=== PATIENT | male | born 1935 | race Two or more races ===

== ENCOUNTER 2016-08-27 09:32 | Emergency (ER) | payer MEDICARE, MEDICAID ==
[~2016-08-27] VITALS: Ht 172.7 cm; Wt 68.0 kg
--- NOTE | 2016-08-27 09:55 | Emergency Room Report ---
History of Present Illness General Chief Complaint: Flu Like Symptoms Source: Patient Present Illness HPI Patient brought in by daughter, 81-year-old gentleman who is generally in good health with three-day history of myalgia, cough, some sweats, body aches. He was seen by her primary DrNoemí yesterday who diagnosed him with the flu. Family states that since leaving he's had more aches, more sweats, worsening cough. He is tolerating by mouth and he is tolerating ambulation with some wooziness according to the daughter. He denies chest pain, denies shortness of breath but does endorse cough. He is not a smoker. Does state that he does feel weak and worn out, but has been trying to drink a lot of water. Allergies: Coded Allergies: ASPIRIN (Verified Allergy, Unknown, 08/27/16) SULFAMETHOXAZOLE (Verified Allergy, Unknown, 08/27/16) TRIMETHOPRIM (Verified Allergy, Unknown, 08/27/16) Patient History Past Medical History: see triage record Past Surgical History: none Pertinent Family History: none Social History: Denies: alcohol use, drug use, smoking Immunizations: UTD Reviewed Nursing Documentation: PMH: Agreed Nursing Documentation-[facility] Past Medical History: No Stated History Review of Systems Constitutional: Reports: fever, weakness Respiratory: Reports: cough, Denies: SOOD Cardiovascular: Denies: chest pain, palpitations Genitourinary: Denies: discharge, dysuria Musculoskeletal: Reports: muscle pain, muscle stiffness All Other Systems: negative except mentioned in HPI Physical Exam Vital Signs Date Time Temp Pulse Resp B/P Pulse Ox O2 Delivery O2 Flow Rate FiO2 08/27/16 09:37 100.8 93 16 155/80 95 Room Air Sp02 EP Interpretation: reviewed, normal General Appearance: well appearing, no apparent distress, alert Head: atraumatic Eyes: bilateral eye normal inspection ENT: normal ENT inspection, hearing grossly normal, normal voice Neck: normal inspection, full range of motion, supple, no bony tend Respiratory: lungs clear, no respiratory distress, no retraction, no wheezing, other - dry cough Cardiovascular #1: regular rate, rhythm, no edema Gastrointestinal: normal inspection, normal bowel sounds, non tender, soft, no guarding, no hernia Genitourinary: no CVA tenderness Musculoskeletal: normal inspection, back normal, normal range of motion Neurologic: normal inspection, alert, responsive, speech normal Psychiatric: normal inspection, judgement/insight normal, mood/affect normal Skin: normal inspection, normal color, no rash Medical Decision Making Diagnostic Impression: Primary Impression: Influenza-like symptoms Additional Impression: Fever ER Course Generally healthy 81-year-old male with flulike symptoms with cough, fever, myalgias for 3 days with possible worsening. Found to be slightly febrile here in the ER but otherwise looks fairly well. We'll do basic blood work to include x-rays EKG chest x-ray, flu swab. And start IV fluid and Tylenol for therapy. Based on initial workup determine his risk and what the next step should be. Patient's lab or generally reassuring, chest x-ray without infiltrate, influenza negative. The patient's daughter disagrees with my diagnosis with a viral syndrome and is made multiple statements that she was DrNoemí the administration because I am not providing antibiotics for the patient. We did give the patient Tylenol and IV fluids and he feels better, he's been walking without difficulty in the ER. I plan to prescribe the patient some doxycycline for possible upper respiratory infection or walking pneumonia and is has not yet developed on the x-ray. Patient followup with primary doctor when necessary Laboratory Tests Test 08/27/16 10:20 White Blood Count 6.6 K/UL (4.8-10.8) Red Blood Count 5.33 M/UL (4.70-6.10) Hemoglobin 17.0 G/DL (14.2-18.0) Hematocrit 51.3 % (42.0-52.0) Mean Corpuscular Volume 96 FL (80-99) Mean Corpuscular Hemoglobin 32.0 PG (27.0-31.0) H Mean Corpuscular Hemoglobin Concent 33.2 G/DL (32.0-36.0) Red Cell Distribution Width 13.2 % (11.6-14.8) Platelet Count 149 K/UL (150-450) L Mean Platelet Volume 9.7 FL (6.5-10.1) Neutrophils (%) (Auto) 75.0 % (45.0-75.0) Lymphocytes (%) (Auto) 9.1 % (20.0-45.0) L Monocytes (%) (Auto) 14.3 % (1.0-10.0) H Eosinophils (%) (Auto) 0.6 % (0.0-3.0) Basophils (%) (Auto) 1.1 % (0.0-2.0) Urine Color Yellow Urine Appearance Clear Urine pH 7 (4.5-8.0) Urine Specific [place] 1.010 (1.005-1.035) Urine Protein 2+ (NEGATIVE) H Urine Glucose (UA) Negative (NEGATIVE) Urine Ketones 2+ (NEGATIVE) H Urine Occult Blood 2+ (NEGATIVE) H Urine Nitrite Negative (NEGATIVE) Urine Bilirubin Negative (NEGATIVE) Urine Urobilinogen Normal MG/DL (0.0-1.0) Urine Leukocyte Esterase Negative (NEGATIVE) Urine RBC 5-10 /HPF (0 - 0) H Urine WBC 0-2 /HPF (0 - 0) Urine Squamous Epithelial Cells Occasional /LPF Urine Bacteria Occasional /HPF (NONE) Sodium Level 136 mEQ/L (135-145) Potassium Level 4.9 mEQ/L (3.4-4.9) Chloride Level 94 mEQ/L (98-107) L Carbon Dioxide Level 30 mEQ/L (20-30) Anion Gap 12 (5-15) Blood Urea Nitrogen 18 mg/dL (7-23) Creatinine 1.1 mg/dL (0.7-1.2) Estimat Glomerular Filtration Rate mL/min (>60) Glucose Level 107 mg/dL (74-106) H Lactic Acid Level 1.20 mmol/L (0.66-2.22) Calcium Level 9.5 mg/dL (8.6-10.2) Total Bilirubin 0.3 mg/dL (0.0-1.2) Aspartate Amino Transf (AST/SGOT) 28 U/L (5-40) Alanine Aminotransferase (ALT/SGPT) 32 U/L (3-41) Alkaline Phosphatase 53 U/L (40-129) Total Protein 6.7 g/dL (6.6-8.7) Albumin 3.9 g/dL (3.5-5.2) Globulin 2.8 g/dL Albumin/Globulin Ratio 1.3 (1.0-2.7) EKG Diagnostic Results EKG Time: 10:01 Rate: normal Rhythm: NSR ST Segments: other - left axis deviatiole branch block ASA given to the pt in ED: No Rhythm Strip Diag. Results Rhythm Strip Time: 10:01 EP Interpretation: yes Rate: 93 Rhythm: NSR, no PVC's, no ectopy Chest X-Ray Diagnostic Results Time: 10:29 EP Interpretation: No Findings: no consolidation, no effusion, no pneumothorax, no acute cardiopulmonary disease Number of Views: 1 Reevaluation Time: 11:31 Last Vital Signs Date Time Temp Pulse Resp B/P Pulse Ox O2 Delivery O2 Flow Rate FiO2 08/27/16 09:37 100.8 93 16 155/80 95 Room Air Status: improved Disposition: HOME, SELF-CARE Condition: Stable Scripts Doxycycline Monohydrate* (DOXYCYCLINE MONOHYDRATE*) 100 Mg Capsule 100 MG ORAL Q12H, #14 CAP 0 Refills Prov: Abelardo Beasley MD 08/27/16 Abelardo Beasley MD Aug 27, 2016 09:55
[2016-08-27] MEDS ORDERED: Acetaminophen 500mg (ES) tab ORAL ONE ×2 (10:15)
[2016-08-27 10:31] LABS: APPEARANCE,URINE CLEAR; BASOPHILS % (AUTO) 1.1 % (0.0-2.0); EOSINOPHILS % (AUTO) 0.6 % (0.0-3.0); KETONES,URINE 2+ (NEGATIVE); LEUKOCYTE ESTERASE ,URINE NEGATIVE (NEGATIVE); LYMPHOCYTES % (AUTO) 9.1 % (20.0-45.0); MEAN CORPUSCULAR HGB CONC 33.2 G/DL (32.0-36.0); MEAN CORPUSCULAR VOLUME 96 FL (80-99); MEAN PLATELET VOLUME 9.7 FL (6.5-10.1); MONOCYTES % (AUTO) 14.3 % (1.0-10.0); NITRITE,URINE NEGATIVE (NEGATIVE); PH,URINE 7 (4.5-8.0); PLATELET COUNT 149 K/UL (150-450); PROTEIN,URINE 2+ (NEGATIVE); RED BLOOD COUNT 5.33 M/UL (4.70-6.10); RED CELL DISTRIBUTION WIDTH 13.2 % (11.6-14.8); UROBILINOGEN,URINE NORMAL MG/DL (0.0-1.0); WHITE BLOOD COUNT 6.6 K/UL (4.8-10.8)
[2016-08-27 10:37] VITALS: BP 151/75
[2016-08-27 10:40] LABS: ALANINE AMINOTRANSFERASE 32 U/L (3-41); ALBUMIN/GLOBULIN RATIO 1.3 (1.0-2.7); ANION GAP 12 (5-15); ASPARTATE AMINO TRANSFERASE 28 U/L (5-40); CALCIUM 9.5 mg/dL (8.6-10.2); CARBON DIOXIDE 30 mEQ/L (20-30); CHLORIDE 94 mEQ/L (98-107); CREATININE 1.1 mg/dL (0.7-1.2); HEMOLYSIS 9; POTASSIUM 4.9 mEQ/L (3.4-4.9); SODIUM 136 mEQ/L (135-145); TOTAL PROTEIN 6.7 g/dL (6.6-8.7)
[2016-08-27 10:41] LABS: BACTERIA,URINE OCCASIONAL /HPF; SQUAMOUS EPITHELIAL CELL,UR OCCASIONAL /LPF (NONE/OCC); WBC,URINE 0-2 /HPF (0 - 0)
[2016-08-27 11:49] VITALS: BP 144/81
[2016-08-27] MEDS ORDERED: DOXYCYCLINE MO100 MG ORAL (12:09)
[2016-08-27 12:45] VITALS: BP 144/81
--- NOTE | 2016-09-05 13:45 | Cardiology Report ---
APPROVED REPORT EKG Measurement Heart [id number] Normal sinus rhythm Left axis deviation Right bundle branch block Abnormal ECG
--- NOTE | 2016-09-09 14:10 | Diagnostic Imaging Report ---
Indication: ], Infection Technique: Single portable AP view of the chest. Findings: Comparison: None. Suboptimal inspiration limits evaluation. Mild elevation apparent right hemidiaphragm. Aortic arch mildly calcified and elongated. The bones and extra pulmonary soft tissues, remainder of the cardiomediastinal silhouette, pulmonary vasculature, visualized portions of pulmonary parenchyma and pleural surfaces are unremarkable. IMPRESSION: Mild elevation apparent right hemidiaphragm, nonspecific, acuity indeterminate Otherwise no evidence of acute cardiopulmonary disease, limited as described Aortosclerosis and probable chronic hypertensive change.
== END 2016-08-27 12:47 | disposition home or self-care (01) ==
LOC: EMR 10:37
DX: J11.1 Influenza due to unidentified influenza virus with other respiratory manifestations (principal); R50.9 Fever, unspecified; Z88.6 Allergy status to analgesic agent; Z88.2 Allergy status to sulfonamides
CPT/HCPCS: 36415; 71010; 80053; 81003; 83605; 85025; 86710; 93005; 96374; 99284; J7040